=== PATIENT | male | born 1950 | race Caucasian/White ===

== ENCOUNTER 2016-12-07 21:25 | Emergency (ER) | payer MEDICARE, MEDICAID ==
[~2016-12-07] VITALS: Ht 175.3 cm; Wt 65.8 kg
[~2016-12-07 21:25] MED LIST: CYMBALTA30 MG ORAL; FLOMAX0.4 MG ORAL; ISENTRESS400 MG ORAL; TRUVADA 200 MG1 EAC1 ORAL
[2016-12-07 22:00] VITALS: BP 144/87
[2016-12-07] MEDS ORDERED: IBUPROFEN600 MG ORAL (22:05)
--- NOTE | 2016-12-07 22:05 | Emergency Room Report ---
History of Present Illness General Chief Complaint: Dyspnea/Respdistress Source: Patient Present Illness HPI Is a 66-year-old male who present with chief complaint of throat closing and tightness. Also complaining of headache. Onset for 2-3 days. No fever or chills. [place] like he can't take a deep breath. No nausea no vomiting. No fever or chills. Pain is 8/10. Allergies: Coded Allergies: PENICILLINS (Verified Adverse Reaction, Mild, 12/10/13) DEHYDRATION Patient History Past Medical History: see triage record, old chart reviewed Past Surgical History: other Pertinent Family History: none Social History: Denies: smoking Immunizations: other Reviewed Nursing Documentation: PMH: Agreed, PSxH: Agreed Nursing Documentation-PMH Hx Cardiac Problems: No - BACK PAIN, HIV, PROSTATE ENLARGEMENT Review of Systems Eye: Denies: blurred vision, eye pain ENT: Reports: throat swelling, Denies: ear pain, nose congestion Respiratory: Denies: cough, shortness of breath Cardiovascular: Denies: chest pain, palpitations Gastrointestinal: Denies: abdominal pain, diarrhea, nausea, vomiting Musculoskeletal: Denies: back pain, joint pain Skin: Denies: rash Neurological: Reports: headache, Denies: numbness Endocrine: Denies: increased thirst, increased urine Hematologic/Lymphatic: Denies: easy bruising All Other Systems: negative except mentioned in HPI Physical Exam Vital Signs Date Time Temp Pulse Resp B/P Pulse Ox O2 Delivery O2 Flow Rate FiO2 12/07/16 21:28 99.9 76 18 152/87 97 Room Air vitals with htn Sp02 EP Interpretation: reviewed, normal General Appearance: well appearing, no apparent distress, alert Head: normocephalic, atraumatic Eyes: bilateral eye EOMI, bilateral eye PERRL ENT: hearing grossly normal, normal pharynx, uvula midline - enlarged Neck: full range of motion, supple, no meningismus Respiratory: chest non-tender, lungs clear, normal breath sounds Cardiovascular #1: regular rate, rhythm, no murmur Gastrointestinal: normal bowel sounds, non tender, no mass, no organomegaly, no bruit, non-distended Musculoskeletal: back normal, gait/station normal, normal range of motion Psychiatric: mood/affect normal Skin: warm/dry Medical Decision Making Diagnostic Impression: Primary Impression: Laryngitis, acute Additional Impression: Headache Qualified Codes: R51 - Headache ER Course Patient presents with a viral illness. No evidence of respiratory distress. He is is comfortable talking on his phone. No evidence of meningitis, sepsis, pneumonia to name a few. This is viral in nature. No need for antibiotics. We 'll discharge home. Last Vital Signs Date Time Temp Pulse Resp B/P Pulse Ox O2 Delivery O2 Flow Rate FiO2 12/07/16 21:28 99.9 76 18 152/87 97 Room Air Status: improved Disposition: HOME, SELF-CARE Condition: Stable Scripts Ibuprofen* (MOTRIN*) 600 Mg Tablet 600 MG ORAL Q8H Y for For Pain, #30 TAB 0 Refills Prov: MONSERRAT ZAPATA M.D. 12/07/16 Additional Instructions: Follow up with your doctor in 7 days. Return if worse. MONSERRAT ZAPATA M.D. Dec 07, 2016 22:05
[2016-12-07 22:15] VITALS: BP 144/87
== END 2016-12-07 22:11 | disposition home or self-care (01) ==
LOC: EMR 22:04
DX: J04.0 Acute laryngitis (principal); R51 Headache; Z88.0 Allergy status to penicillin
CPT/HCPCS: 99283

== ENCOUNTER 2018-05-21 22:23 | Emergency (ER) | payer MEDICARE, MEDICAID ==
[~2018-05-21] VITALS: Ht 175.3 cm; Wt 67.1 kg
[~2018-05-21 22:23] MED LIST changes: +IBUPROFEN600 MG ORAL
[2018-05-21 22:58] VITALS: BP 117/64
[2018-05-21] MEDS ORDERED: CLINDAMYCIN HC300 MG ORAL (23:45)
[2018-05-21 23:50] VITALS: BP 123/74
[2018-05-21 23:56] VITALS: BP 123/74
--- NOTE | 2018-05-22 01:15 | Emergency Room Report ---
History of Present Illness General Chief Complaint: Skin Rash/Abscess Source: Patient Present Illness HPI 67-year-old male presents ED for evaluation. Presents with pain and swelling to the right thigh. Believes it was an insect bite. Started yesterday evening. States he was been applying warm compresses but it is not improving. Denies fevers or chills. Pain is throbbing, 9 out of 10, nonradiating. Denies any discharge. No other aggravating relieving factors. Denies any other associated symptoms Allergies: Coded Allergies: PENICILLINS (Verified Adverse Reaction, Mild, 12/10/13) DEHYDRATION Patient History Past Medical History: HIV Past Surgical History: none Pertinent Family History: none Social History: Denies: smoking, alcohol use, drug use Immunizations: UTD Reviewed Nursing Documentation: PMH: Agreed; PSxH: Agreed Nursing Documentation-PMH Past Medical History: No History, Except For Hx Cardiac Problems: No - BACK PAIN, HIV, PROSTATE ENLARGEMENT Review of Systems All Other Systems: negative except mentioned in HPI Physical Exam Vital Signs Date Time Temp Pulse Resp B/P (MAP) Pulse Ox O2 Delivery O2 Flow Rate FiO2 05/21/18 22:37 98.2 78 16 117/64 98 Room Air Sp02 EP Interpretation: reviewed, normal General Appearance: no apparent distress, alert, GCS 15, non-toxic Head: normocephalic Eyes: bilateral eye normal inspection, bilateral eye PERRL ENT: normal ENT inspection Neck: normal inspection Respiratory: normal inspection Cardiovascular #1: normal inspection Gastrointestinal: normal inspection Rectal: deferred Genitourinary: no CVA tenderness Musculoskeletal: normal inspection Neurologic: alert, oriented x3, responsive, motor strength/tone normal, sensory intact, speech normal Psychiatric: judgement/insight normal, memory normal, mood/affect normal, no suicidal/homicidal ideation Skin: other - 5x5cm area of induration/erythema to R thigh. central area of swelling. no fluctuance or discharge Lymphatic: normal inspection Medical Decision Making Diagnostic Impression: Primary Impression: Cellulitis of thigh ER Course Hospital Course 67-year-old male presents to ED with redness, pain to R thigh Differential diagnoses include: Cellulitis, dermatitis, insect bite, abscess Clinical course Patient placed on stretcher. After initial history, physical exam reveals an elderly male in no acute distress. On exam there is a site for erythema and induration to the right thigh. There is no fluctuance. +TTP. No discharge Discussed with patient. Afebrile, nontoxic. Will require antibiotics. Given IV clindamycin here. We'll discharge with antibiotics. Cussed with PMD Dr. Dodge. agrees to plan Diagnosis - cellulitis of thigh stable and discharged to home with prescription for Clindamycin. warm compresses. Instructed to followup with PMD. Instructed return to ED if symptoms recur or worsen Last Vital Signs Date Time Temp Pulse Resp B/P (MAP) Pulse Ox O2 Delivery O2 Flow Rate FiO2 05/21/18 23:56 98.6 87 18 123/74 100 Room Air Status: improved Disposition: HOME, SELF-CARE Condition: Stable Scripts Clindamycin Hcl (CLINDAMYCIN HCL) 300 Mg Capsule 300 MG ORAL THREE TIMES A DAY, #21 CAP Prov: Alfredo Castro MD 05/21/18 Patient Instructions: Cellulitis, [id number] Alfredo Castro MD May 22, 2018 01:15
== END 2018-05-21 23:57 | disposition home or self-care (01) ==
LOC: EMR 23:10
DX: L03.115 Cellulitis of right lower limb (principal); Z88.0 Allergy status to penicillin
CPT/HCPCS: 96365; 99284; S0077

== ENCOUNTER 2019-02-09 15:48 | Emergency (ER) | payer MEDICARE, MEDICAID ==
[~2019-02-09] VITALS: Ht 175.3 cm; Wt 68.0 kg
[~2019-02-09 15:48] MED LIST changes: +BACITRACIN15 GM TOPIC; +BACTRIM DS TAB1 EAC1 ORAL; +CLINDAMYCIN HC300 MG ORAL
[2019-02-09] MEDS ORDERED: Descovy ORAL (16:05)
--- NOTE | 2019-02-09 16:36 | Emergency Room Report ---
History of Present Illness General Chief Complaint: Skin Rash/Abscess Source: Patient Present Illness HPI 68 YO Male presents to the ED c/o soft tissue abscess on the right lower abdomen since last night. Pt. reports 2/ 10 in severity pain, tenderness, erythema and warmth. Pt. reports about a walnut sized area of "hardness". Pt. is HIV positive and reports normal CD4 counts. Pt. denies Fevers or chills. pt. reports hx of ST abscess' in the past in his LE's. PT. denies abdominal upset, N /V/C/diarrhea. He states he is UTD with his vaccinations. Reports pain is exacerbated by his waistband of his pants as they are rubbing against the affected area. Denies itching. Allergies: Coded Allergies: PENICILLINS (Verified Adverse Reaction, Mild, 12/10/13) DEHYDRATION Patient History Past Medical History: see triage record, HIV Past Surgical History: none Pertinent Family History: none Immunizations: UTD Reviewed Nursing Documentation: PMH: Agreed; PSxH: Agreed Nursing Documentation-PMH Past Medical History: No History, Except For Hx Cardiac Problems: No - BACK PAIN, HIV, PROSTATE ENLARGEMENT Hx Hypertension: No Hx Pacemaker: No Hx Asthma: No Hx COPD: No Hx Diabetes: No Hx Cancer: No Hx Gastrointestinal Problems: No Hx Dialysis: No History Of Psychiatric Problem: Yes - Depression Hx Neurological Problems: No Hx Cerebrovascular Accident: No Hx Seizures: No Review of Systems All Other Systems: negative except mentioned in HPI Physical Exam Vital Signs Date Time Temp Pulse Resp B/P (MAP) Pulse Ox O2 Delivery O2 Flow Rate FiO2 02/09/19 15:58 98.8 77 19 139/70 (93) 94 Room Air Sp02 EP Interpretation: reviewed, normal General Appearance: no apparent distress, alert, GCS 15, non-toxic Head: normocephalic, atraumatic Eyes: bilateral eye normal inspection, bilateral eye PERRL ENT: hearing grossly normal, normal voice Neck: full range of motion Respiratory: lungs clear, normal breath sounds, speaking full sentences Cardiovascular #1: regular rate, rhythm Gastrointestinal: soft, tenderness - superficial soft tissue tenderness, erythema and induration 3cm with surrounding erythema noted. No TTP to deep palpation of the abdomen. No peritoneal signs. Rectal: deferred Genitourinary: normal inspection Musculoskeletal: back normal, gait/station normal, normal range of motion, non- tender Neurologic: alert, oriented x3, responsive, motor strength/tone normal, sensory intact, speech normal, grossly normal Psychiatric: judgement/insight normal Skin: other - superficial soft tissue tenderness, erythema and induration 3cm with surrounding erythema noted. mild drainage noted. Procedures Incision and Drainage Incision and Drainage : Consent: Verbal Site: right abdomenal wall Blade Size: 11 I & D Procedure: betadine prep, sterile drapes applied, sterile dressing applied Wound Location: abdomen Wound's Depth, Shape: superficial, linear Wound Length (cm): 1 Wound Explored: contaminated - some purulent fluid and blood is expressed Anesthesia: Lidocaine w/ Epi Volume Anesthetic (ccs): 3 Splint Applied?: No Sling Applied?: No Patient Tolerated: Well Complications: None Medical Decision Making PA Attestation Dr. Contreras is my supervising Physician whom patient management has been discussed with. Diagnostic Impression: Primary Impression: Abscess Additional Impression: Cellulitis of abdominal wall ER Course Pt. presents to the ED c/o pain, swelling, and erythema of lower abdominal area since last night. Ddx considered but are not limited to cellulitis, abscess, cystic acne, necrotizing fasciitis, insect bite. Vital signs: are WNL, pt. is afebrile H&PE are most consistent with ST cellulitis and abscess of lower abdomen ORDERS: none required at this time, the diagnosis is clinical ED INTERVENTIONS: -I & D. -Bactrim DS DISCHARGE: At this time pt. is stable for d/c to home. Will provide printed patient care instructions, and any necessary prescriptions. Care plan and follow up instructions have been discussed with the patient prior to discharge. Last Vital Signs Date Time Temp Pulse Resp B/P (MAP) Pulse Ox O2 Delivery O2 Flow Rate FiO2 02/09/19 15:58 98.8 77 19 139/70 (93) 94 Room Air Disposition: HOME, SELF-CARE Condition: Stable Scripts Mupirocin* (MUPIROCIN*) 22 Gm Oint...g. 1 APPLIC TOPIC THREE TIMES A DAY, #22 GM Prov: Alyssa Coon 02/09/19 Trimethoprim/Sulfamethoxazole 160/800* (BACTRIM DS TABLET*) 1 Each Tablet 1 TAB ORAL DAILY for 7 Days, #14 TAB Prov: Alyssa Coon 02/09/19 Patient Instructions: Abscess Additional Instructions: Take medications as directed. Follow up with a Primary Care Provider or Infectious Disease Doctor in 3-5 days, even if your symptoms have resolved. Return sooner to ED if new symptoms occur, or current symptoms become worse. - Please note that this Emergency Department Report was dictated using [employer] drill press operator technology software, occasionally this can lead to erroneous entry secondary to interpretation by the dictation equipment. Alyssa Coon Feb 09, 2019 16:36
[2019-02-09] MEDS ORDERED: Lidocaine 2% 20mg/ml/Epi 0.005mg/ml 20ml vial INJ ONE (17:15)
--- NOTE | 2019-02-09 17:57 | NUR ---
ED Nurse Note: Patient nursed in fast track OB. Abcess present to mid lower abdomen area of redness noted. Patient denies pain.
[2019-02-09 18:02] VITALS: BP 150/87
[2019-02-09] MEDS ORDERED: BACTRIM DS TAB1 EAC1 ORAL (18:24)
[2019-02-09] MEDS ORDERED: MUPIROCIN22 GM TOPIC (18:24)
[2019-02-09] MEDS ORDERED: Bactrim-DS 1 tab ORAL ONE (18:30)
[2019-02-09 18:42] VITALS: BP 158/88
[2019-02-09 18:43] VITALS: BP 158/88
== END 2019-02-09 18:46 | disposition home or self-care (01) ==
LOC: EMR 16:20
DX: L02.211 Cutaneous abscess of abdominal wall (principal); L03.311 Cellulitis of abdominal wall; F32.9 Major depressive disorder, single episode, unspecified; N40.0 Benign prostatic hyperplasia without lower urinary tract symptoms; B20 Human immunodeficiency virus [HIV] disease; Z88.0 Allergy status to penicillin
CPT/HCPCS: 99283